=== PATIENT | male | born 1945 | race Caucasian/White ===

== ENCOUNTER 2021-10-23 11:43 | Inpatient (IN) ==
--- NOTE | 2021-10-23 12:39 | Emergency Department Note ---
History of Present Illness General Chief complaint: Leg Injury/Pain Stated complaint: RIGHT CALF PAIN Time Seen by Provider: 10/23/21 12:12 Source: patient and family Mode of arrival: ambulatory Limitations: no limitations History of Present Illness Provider complaint: Right leg swelling/pain, hypoxia Onset (ago): week(s) 1 Maximum Pain Intensity: 6 Treatments prior to arrival: none This is a 76-year-old male presents emergency department with concern for right lower extremity pain and swelling as well as recently noted hypoxia. 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 Patient often has edema to his legs after being on his feet however he states the right leg continued to become more edematous and became more painful with it. No recent trauma or change in activity. Patient also noticed increased fatigue over the last 10 days. Denies overt shortness of breath or coughing. at bedside states he can barely walk several steps due to the pain in the right lower extremity. He denies chest pain, fevers or chills. Patient states because he historically has been very well conditioned and would run marathons his resting heart rate is typically in the 60s, respiratory rate around 10. He states due to his increased fatigue over the weekend he checked with a home pulse oximeter and was routinely finding sats in the mid to upper 80s. Patient does have a prior history of lung cancer. He underwent resection at [facility] 5 years ago. He states 1 year ago a recurrence was found with metastatic disease. He is currently taking 2 immunologic chemotherapeutic agents. Pt seen during a time of high acuity and national emergency pandemic while wea ring PPE. Home Medications Medication Instructions Recorded Confirmed Type glucosamine sulfate 500 mg tablet 1,500 mg PO BID 09/26/18 10/23/21 History (Glucosamine) capmatinib 200 mg tablet (Tabrecta) 200 mg PO BID 10/23/21 10/23/21 History osimertinib 80 mg tablet (Tagrisso) 80 mg PO DAILY 10/23/21 10/23/21 History Allergies Allergy/AdvReac Type Severity Reaction Status Date / Time bee venom protein (honey bee) Allergy Severe Anaphylaxis Verified 10/13/18 10:44 dutasteride [From Avodart] Allergy Intermediate Hives Verified 10/13/18 10:44 [facility] Allergy Severe Anaphylaxis Uncoded 09/26/18 13:27 Past Med/Surg History Medical History (Updated 10/25/21 @ 00:39 by Roslyn Tanner DO) Acute DVT (deep venous thrombosis) GERD (gastroesophageal reflux disease) Lung cancer SURGERY Metastasis to brain Osteoarthritis Prostate cancer RADIATION AND SEEDS Pulmonary embolism and infarction Scoliosis Surgical History History of appendectomy History of arthroscopy RT/LEFT KNEE History of cardiac cath 1988 AT [facility] (NO STENTS) History of colonoscopy History of herniorrhaphy RT/LEFT INGUINAL HERNIA X 2 History of lobectomy of lung L UPPER LOBECTOMY LEFT WEDGE RESECTION History of tonsillectomy History of tooth extraction Macular pucker LEFT EYE (LASER) Family History (Updated 10/23/21 @ 16:16 by Suzanne Campos MD) Other Family history non-contributory Social History (Updated 10/23/21 @ 16:17 by Suzanne Campos MD) Smoking Status: Never smoker Second Hand Exposure: No; Hx Alcohol Use: Yes Alcohol type: beer Hx Substance Use: No Preferred Language: Persian Communication Ability: Effective Optical Instrument Assembler Required: No Beliefs That Will Affect Care: None marital status: Current Living Situation: Spouse current occupational status: employed 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 [employer] Other Information That Helps Us Care for You: No Feels Safe at Home: Yes Safety Concerns: Feels Safe At This Time Assistive Devices: Glasses Review of Systems A total of 10 systems reviewed and were otherwise negative All systems reviewed & are unremarkable except as noted in HPI & below Physical Exam Vital Signs Vital Signs - 24 hr 10/23/21 11:55 Temperature 36.0 C L Temperature Source Temporal Artery Scan Pulse Rate 78 Respiratory Rate 20 Respiratory Effort / Characteristics Non-Labored Respiratory Depth Normal Blood Pressure 116/77 Blood Pressure Mean 90 Pulse Oximetry 94 Oxygen Delivery Method Room Air Sepsis Recent Fever Within 48 Hours No Sepsis New/Unexplained Change in Mental Status N/A Sepsis Action Taken by Nursing No Action Required GENERAL: alert, well appearing, well nourished, no distress, non-toxic EYE EXAM: normal conjunctiva, PERRL and EOM's grossly intact OROPHARYNX: no exudate, no erythema, lips, buccal mucosa, and tongue normal and mucous membranes are moist NECK: supple, no nuchal rigidity, no adenopathy, non-tender LUNGS: Clear to auscultation. Normal chest wall mechanics, no w/r/r HEART: no murmurs, S1 normal and S2 normal ABDOMEN: abdomen soft, non-tender, normo-active bowel sounds, no masses, no rebound or guarding. BACK: Back is symmetrical on inspection and there is no deformity, no midline tenderness, no CVA tenderness. SKIN: no rashes and no bruising UPPER EXTREMITIES: upper extremities are grossly normal. FROM, nml pulses b/l. LOWER EXTREMITIES: No pitting edema. FROM, nml pulses b/l. NEURO EXAM: Normal sensorium, cranial nerves II-XII grossly intact, normal speec h, no gross weakness of arms, no gross weakness of legs. Gross sensation intact. Course Administered Medications Cephalexin HCl (Cephalexin 250 Mg Cap) 250 mg PO QID [facility]; Protocol Stop: 10/30/21 17:49 Last Admin: 10/24/21 20:58 Dose: 250 mg Documented by: [id number] Admin: 10/24/21 16:37 Dose: 250 mg Documented by: [id number] Admin: 10/24/21 13:15 Dose: 250 mg Documented by: [id number] Admin: 10/24/21 08:12 Dose: 250 mg Documented by: [id number] Admin: 10/23/21 23:30 Dose: 250 mg Documented by: [id number] Admin: 10/23/21 19:40 Dose: 250 mg Documented by: [id number] Doxycycline Hyclate (Doxycycline Hyclate 100 Mg Cap) 100 mg PO BID [facility] Stop: 10/30/21 17:49 Last Admin: 10/24/21 20:58 Dose: 100 mg Documented by: [id number] Admin: 10/24/21 08:13 Dose: 100 mg Documented by: [id number] Admin: 10/23/21 19:40 Dose: 100 mg Documented by: [id number] Enoxaparin Sodium (Enoxaparin 80 Mg/0.8 Ml Syr) 80 mg SQ Q12H [facility] Stop: 11/23/21 18:59 Last Admin: 10/24/21 19:51 Dose: 80 mg Documented by: [id number] Capmatinib (Tabrecta ) 200 Mg Tab - Non- Formulary Patient's Own Med 2 ea PO BIDM [facility] Stop: 11/22/21 19:59 Last Admin: 10/24/21 16:37 Dose: 2 ea Documented by: [id number] Admin: 10/24/21 08:13 Dose: 2 ea Documented by: [id number] Admin: 10/23/21 19:49 Dose: 200 mg Documented by: [id number] Osimertinib (Osimertinib Mesylate - Pt Own Med) 1 ea PO HS [facility] Stop: 11/22/21 20:59 Last Admin: 10/24/21 16:38 Dose: 1 ea Documented by: [id number] Cosigned by: [id number] Admin: 10/23/21 21:24 Dose: 1 ea Documented by: [id number] Cosigned by: [id number] Discontinued Medications Heparin Sodium (Porcine) (Heparin Sod (Porcine) 1000 Unit/Ml) 6,000 units IV NOW ONE Stop: 10/23/21 14:54 Last Admin: 10/23/21 15:12 Dose: 6,000 units Documented by: [id number] Cosigned by: [id number] Sodium Chloride (Nss 1000ml) 1,000 mls @ 125 mls/hr IV .Q8H [facility] Stop: 11/22/21 12:44 Last Infusion: 10/23/21 17:50 Dose: 0 mls/hr Documented by: [id number] Admin: 10/23/21 14:06 Dose: 125 mls/hr Documented by: [id number] Heparin Sodium/Dextrose (Heparin Sodium/Dextrose) 25,000 units in 500 mls @ 23 mls/hr IV .[id number] [facility]; Protocol Stop: 11/22/21 14:59 Last Titration: 10/24/21 18:22 Dose: 0 units/hr, 0 mls/hr Documented by: [id number] Cosigned by: [id number] Admin: 10/24/21 10:16 Dose: 1,150 units/hr, 23 mls/hr Documented by: [id number] Cosigned by: [id number] Titration: 10/24/21 10:16 Dose: 1,150 units/hr, 23 mls/hr Documented by: [id number] Cosigned by: [id number] Titration: 10/24/21 08:20 Dose: 1,150 units/hr, 23 mls/hr Documented by: [id number] Cosigned by: [id number] Titration: 10/24/21 06:59 Dose: 1,150 units/hr, 23 mls/hr Documented by: [id number] Cosigned by: [id number] Titration: 10/24/21 00:23 Dose: 1,150 units/hr, 23 mls/hr Documented by: [id number] Cosigned by: [id number] Admin: 10/23/21 15:13 Dose: 1,400 units/hr, 28 mls/hr Documented by: [id number] Cosigned by: [id number] Ioversol (Optiray 320 125ml) 120 ml IV ONCE ONE Stop: 10/23/21 13:51 Last Admin: 10/23/21 13:51 Dose: 120 ml Documented by: [id number] Lidocaine/Epinephrine (Lidocaine 2%/Epinephrine 1:100,000 20ml) 20 ml INFIL ONE ONE Stop: 10/23/21 15:47 Last Admin: 10/23/21 15:59 Dose: 20 ml Documented by: [id number] Miscellaneous (Heparin - Stop Order) 1 ea N/A ONE ONE Stop: 10/24/21 18:31 Last Admin: 10/24/21 18:22 Dose: 1 ea Documented by: [id number] Critical Care Time Critical Care Time: Yes Total Critical Care Time: 42 Critical care of 42 min performed to assess and manage high likelihood of life- threatening PE's, involving labs and imaging performed with assessment to evaluate hypoxia and PE diagnosis with frequent reassessment. This time includes bedside time, treatment discussions with patient/family/consultants, documentation time and excludes procedure time. Medical Decision Making Differential Diagnosis DVT, musculoskeletal, infection, joint effusion, trauma, lymphedema, idiopathic, CHF, as well as other pathologies. Medical Records Attestation: I reviewed the patient's medical records. Home Medications Current Medication List: was personally reviewed by me Laboratory Data Attestation: I reviewed the patient's lab results. Result diagrams: 10/24/21 06:54 10/24/21 06:54 Lab Results 10/23/21 10/23/21 10/23/21 Range/Units 12:45 12:45 12:45 WBC 8.30 (4.8-10.8) K/uL RBC 4.52 L (4.7-6.1) M/uL Hgb 14.1 (14.0-18.0) g/dL Hct 41.8 L (42-52) % MCV 92.5 (80-100) fL MCH 31.2 (25-34) pg MCHC 33.7 (32-36) g/dL RDW Std Deviation 47.0 H (36.4-46.3) fL RDW Coeff of Azael 13.8 (11.5-14.5) % Plt Count 187 (130-400) K/uL MPV 9.7 (7.4-10.4) fL Immature Gran % (Auto) 0.1 % Neut % (Auto) 67.9 % Lymph % (Auto) 15.8 % [place] % (Auto) 10.6 % Eos % (Auto) 5.2 % Baso % (Auto) 0.4 % Neut # (Auto) 5.64 (1.4-6.5) K/uL Lymph # (Auto) 1.31 (1.2-3.4) K/uL [place] # (Auto) 0.88 H (0.11-0.59) K/uL Eos # (Auto) 0.43 (0-0.5) K/uL Baso # (Auto) 0.03 (0-0.2) K/uL Immature Gran # (Auto) 0.01 (0.00-0.02) K/uL PT 11.9 (9.0-12.0) Seconds INR 1.1 (0.9-1.1) Sodium 138 (136-145) mmol/L Potassium 4.1 (3.5-5.1) mmol/L Chloride 106 (98-107) mmol/L Carbon Dioxide 27 (21-32) mmol/L Anion Gap 5 (3-11) BUN 15 (6-23) mg/dl Creatinine 1.34 (0.6-1.4) mg/dl Est Cr Clr Drug Dosing 48.4 ml/min Est GFR ( Amer) 59.2 ml/min Est GFR (Non-Af Amer) 51.1 ml/min BUN/Creatinine Ratio 11.2 (10-20) Glucose 104 H (70-99(Fasting)) mg/dl Calcium 8.2 L (8.5-10.1) mg/dl Magnesium 1.9 (1.7-2.4) mg/dl Total Bilirubin 1.0 (0.2-1.0) mg/dl AST 17 (13-39) U/L ALT 17 (7-52) U/L Alkaline Phosphatase 76 (34-104) U/L Troponin I High Sens 206.2 H* (0-20) pg/ml B-Natriuretic Peptide (0-100) pg/ml Total Protein 5.7 L (6.0-8.3) gm/dl Albumin 3.2 L (3.4-5.0) gm/dl Globulin 2.5 (2.5-4.0) gm/dl Albumin/Globulin Ratio 1.3 (0.9-2) Lyme Disease IgG Ab (Negative) Lyme Disease IgM Ab (Negative) SARS-CoV-2, RNA, NAAT (NEGATIVE) 10/23/21 10/23/21 10/23/21 Range/Units 12:45 15:15 15:30 WBC (4.8-10.8) K/uL RBC (4.7-6.1) M/uL Hgb (14.0-18.0) g/dL Hct (42-52) % MCV (80-100) fL MCH (25-34) pg MCHC (32-36) g/dL RDW Std Deviation (36.4-46.3) fL RDW Coeff of Azael (11.5-14.5) % Plt Count (130-400) K/uL MPV (7.4-10.4) fL Immature Gran % (Auto) % Neut % (Auto) % Lymph % (Auto) % [place] % (Auto) % Eos % (Auto) % Baso % (Auto) % Neut # (Auto) (1.4-6.5) K/uL Lymph # (Auto) (1.2-3.4) K/uL [place] # (Auto) (0.11-0.59) K/uL Eos # (Auto) (0-0.5) K/uL Baso # (Auto) (0-0.2) K/uL Immature Gran # (Auto) (0.00-0.02) K/uL PT (9.0-12.0) Seconds INR (0.9-1.1) Sodium (136-145) mmol/L Potassium (3.5-5.1) mmol/L Chloride (98-107) mmol/L Carbon Dioxide (21-32) mmol/L Anion Gap (3-11) BUN (6-23) mg/dl Creatinine (0.6-1.4) mg/dl Est Cr Clr Drug Dosing ml/min Est GFR ( Amer) ml/min Est GFR (Non-Af Amer) ml/min BUN/Creatinine Ratio (10-20) Glucose (70-99(Fasting)) mg/dl Calcium (8.5-10.1) mg/dl Magnesium (1.7-2.4) mg/dl Total Bilirubin (0.2-1.0) mg/dl AST (13-39) U/L ALT (7-52) U/L Alkaline Phosphatase (34-104) U/L Troponin I High Sens (0-20) pg/ml B-Natriuretic Peptide 100 (0-100) pg/ml Total Protein (6.0-8.3) gm/dl Albumin (3.4-5.0) gm/dl Globulin (2.5-4.0) gm/dl Albumin/Globulin Ratio (0.9-2) Lyme Disease IgG Ab Negative (Negative) Lyme Disease IgM Ab Negative (Negative) SARS-CoV-2, RNA, NAAT NEGATIVE (NEGATIVE) Imaging Data Radiologist's Impression: Chest CTA 10/23/21 12:31 CHEST CTA for PULMONARY ARTERIES CT DOSE: 367.62 mGy.cm HISTORY: Fatigue. Weakness. Right calf swelling. TECHNIQUE: Multiaxial CT images of the chest were performed following the intravenous administration of contrast to evaluate the pulmonary arteries. Maximal intensity projection images were also obtained. A dose lowering technique was utilized adhering to the principles of ALARA. COMPARISON STUDY: None. FINDINGS: Normal caliber thoracic aorta with no evidence for dissection. Extensive bilateral pulmonary emboli, right greater than left. This involves the majority the right lobar, segmental, and subsegmental pulmonary arteries. Multiple pulmonary emboli also seen within the left lobar and segmental pulm onary arteries. The main pulmonary artery is mildly dilated at 3.4 cm. There is enlargement of the right ventricle suggestive of mild right-sided heart strain. The heart is mildly enlarged. No pleural or pericardial effusions. No fractures within the visualized osseous structures. A 1.4 cm hypodense lesion within the central liver. This favors a small cyst. There is a partially visualized hypodense lesion within the left kidney which is indeterminate but also favors a cyst. Normal esophagus. Low-density soft tissue thickening at the AP window which is ill-defined. This could represent trace fluid or scarring. There are suture material within the left lower lobe consistent with prior wedge re section. Patchy groundglass densities within the periphery of the right lung favors a small pulmonary infarcts. Linear density within the left upper lobe favor scarring or subsegmental atelectasis. Mild focal thickening along the suture material within the left upper lobe on image 220 which measures 1.7 cm. This may also represent scarring. However, 6 month follow-up recommended to ensure stability given the lack of prior studies for comparison. Small patchy groundglass density within the base of the left lower lobe also favors a developing pulmonary infarct. IMPRESSION: 1. Extensive bilateral pulmonary emboli with evidence for mild right-sided heart strain. 2. Scattered patchy peripheral airspace opacities, right greater than left. These likely represent pulmonary infarcts. 3. Postoperative changes within the left lung. There is focal thickening along the left upper lobe suture material as described above. This favors scarring. However, [address] follow-up recommended to ensure stability given the la ck of prior studies. 4. Ill-defined low density at the AP window may represent fluid or scarring. This also bears watching on future examinations. ACT 112: Positive. There are findings on this exam that require communication between the performing entity and the patient following Patient Test Result Information Act ([place] Act 112) guidelines. Electronically signed by: Virgil Bowden M.D. 10/23/2021 2:07 PM Venous Doppler Study 10/23/21 12:32 RIGHT LOWER EXTREMITY VENOUS DOPPLER HISTORY: edema, pain, cancer hx COMPARISON STUDY: None. FINDINGS: Thrombus identified within the distal right superficial femoral vein, popliteal vein, calf vessels. The right common femoral vein remains patent. IMPRESSION: Right lower extremity DVT as described above. ACT 112: Negative or not required by law. Electronically signed by: Virgil Bowden M.D. 10/23/2021 2:08 PM ECG Data Attestation: I personally reviewed and interpreted this ECG as follows: Indication: + SOB/dyspnea Rate (beats per minute): 80 Rhythm: + normal sinus ECG Intervals/blocks: + Normal QRS and + Normal QT ECG [place]: + Normal ECG ST segments: + Nonspecific ST abnormalities MDM Narrative An order was placed for continuous cardiac monitoring. The monitor shows a rate of _83_ with _normal sinus___ rhythm. This is a 76-year-old male presents emerged department with concern for right lower extremity pain and swelling as well as recent fatigue and hypoxia noted at home. Patient does have a history of lung cancer and is concerned for DVT and PE. While patient showed a normal sinus rhythm in the 80s here, patient states this is elevated for him as he is usually in the 60s as he is active and a runner. Patient was afebrile. Labs are drawn and sent, patient found to have an elevated troponin. Right lower extremity ultrasound positive for extensive DVT, and CTA of the chest positive for multiple bilateral PE with evidence of right heart strain. Patient was hemodynamically stable and not hypoxic while in the emergency room. He was started on heparin bolus and drip and case discussed with the hospitalist. Patient was made aware of all results, verbalized understanding and was in agreement with plan. Impression & Plan Dyspnea, Elevated troponin, Lung cancer, Acute pain of right lower extremity, Pulmonary emboli, DVT (deep venous thrombosis) Discharge Plan Visit Data Chief Complaint: Leg Injury/Pain Stated Complaint: RIGHT CALF PAIN ED Provider: Roslyn Tanner Discharge Problem: Dyspnea, Elevated troponin, Lung cancer, Acute pain of right lower extremity, Pulmonary emboli, DVT (deep venous thrombosis) Patient Disposition: Admitted As Inpatient Discharge Instructions Interventions: ED Discharge Assessment Last Done: 10/23/21 17:14 Discharge Problem: Dyspnea Qualifiers: Dyspnea type: shortness of breath Qualified Code(s): R06.02 - Shortness of breath Lung cancer Qualifiers: Laterality: unspecified laterality Lung location: unspecified part of lung Qualified Code(s): C34.90 - Malignant neoplasm of unspecified part of unspecified bronchus or lung Pulmonary emboli Qualifiers: Pulmonary embolism type: multiple subsegmental (without acute cor pulmonale) Qualified Code(s): I26.94 - Multiple subsegmental pulmonary emboli without acute cor pulmonale DVT (deep venous thrombosis) Qualifiers: DVT location: lower extremity Affected thrombotic vein of extremity: unspeci fied vein of extremity Chronicity: acute Laterality: right Qualified Code(s): I82.401 - Acute embolism and thrombosis of unspecified deep veins of right lower extremity
[2021-10-23] MEDS ORDERED: SODIUM CHLORIDE 0.9% 1000ML 1,000 ML IV SCH (12:45)
[2021-10-23 13:06] LABS: INR 1.1 (0.9-1.1); Prothrombin Time 11.9 Seconds (9.0-12.0)
[2021-10-23 13:21] LABS: Albumin Globulin Ratio 1.3 (0.9-2); Albumin Level 3.2 gm/dl (3.4-5.0); BUN Creatinine Ratio 11.2 (10-20); Calcium 8.2 mg/dl (8.5-10.1); Creatinine Clr Calc Pharmacy 48.4 ml/min; Est GFR (African American) 59.2 ml/min; Est GFR (Non-African American) 51.1 ml/min; Globulin 2.5 gm/dl (2.5-4.0); Magnesium 1.9 mg/dl (1.7-2.4); Potassium 4.1 mmol/L (3.5-5.1); Total Protein 5.7 gm/dl (6.0-8.3)
[2021-10-23 13:25] LABS: Basophils # (auto) 0.03 K/uL (0-0.2); Basophils % (auto) 0.4 %; Eosinophils # (auto) 0.43 K/uL (0-0.5); Eosinophils % (auto) 5.2 %; Hematocrit (blood only) 41.8 % (42-52); Hemoglobin 14.1 g/dL (14.0-18.0); Immature Granulocytes # (auto) 0.01 K/uL (0.00-0.02); Immature Granulocytes % (auto) 0.1 %; Lymphocytes # (auto) 1.31 K/uL (1.2-3.4); Lymphocytes % (auto) 15.8 %; Mean Corpuscular Hemoglobin 31.2 pg (25-34); Mean Corpuscular Hgb Conc 33.7 g/dL (32-36); Mean Corpuscular Volume 92.5 fL (80-100); Mean Platelet Volume 9.7 fL (7.4-10.4); Monocytes # (auto) 0.88 K/uL (0.11-0.59); Monocytes % (auto) 10.6 %; Neutrophils # (auto) 5.64 K/uL (1.4-6.5); Neutrophils % (auto) 67.9 %; Platelet Count 187 K/uL (130-400); RDW Coefficient of Variation 13.8 % (11.5-14.5); Red Blood Count 4.52 M/uL (4.7-6.1)
[2021-10-23 13:28] LABS: Troponin I High Sensitivity 206.2 pg/ml (0-20)
[2021-10-23] MEDS ORDERED: OPTIRAY 320 125ml IV ONE (13:50)
--- NOTE | 2021-10-23 14:09 | CT Scan Report ---
CHEST CTA for PULMONARY ARTERIES CT DOSE: 367.62 mGy.cm HISTORY: Fatigue. Weakness. Right calf swelling. TECHNIQUE: Multiaxial CT images of the chest were performed following the intravenous administration of contrast to evaluate the pulmonary arteries. Maximal intensity projection images were also obtaine d. A dose lowering technique was utilized adhering to the principles of ALARA. COMPARISON STUDY: None. FINDINGS: Normal caliber thoracic aorta with no evidence for dissection. Extensive bilateral pulmonar y emboli, right greater than left. This involves the majority the right lobar, segmental, and subsegm ental pulmonary arteries. Multiple pulmonary emboli also seen within the left lobar and segmental pul monary arteries. The main pulmonary artery is mildly dilated at 3.4 cm. There is enlargement of the r ight ventricle suggestive of mild right-sided heart strain. The heart is mildly enlarged. No pleural or pericardial effusions. No fractures within the visualized osseous structures. A 1.4 cm hypodense l esion within the central liver. This favors a small cyst. There is a partially visualized hypodense l esion within the left kidney which is indeterminate but also favors a cyst. Normal esophagus. Low-den sity soft tissue thickening at the AP window which is ill-defined. This could represent trace fluid o r scarring. There are suture material within the left lower lobe consistent with prior wedge resectio n. Patchy groundglass densities within the periphery of the right lung favors a small pulmonary infar cts. Linear density within the left upper lobe favor scarring or subsegmental atelectasis. Mild focal thickening along the suture material within the left upper lobe on image 220 which measures 1.7 cm. This may also represent scarring. However, 6 month follow-up recommended to ensure stability given th e lack of prior studies for comparison. Small patchy groundglass density within the base of the left lower lobe also favors a developing pulmonary infarct. IMPRESSION: 1. Extensive bilateral pulmonary emboli with evidence for mild right-sided heart strain. 2. Scattered patchy peripheral airspace opacities, right greater than left. These likely represent pu lmonary infarcts. 3. Postoperative changes within the left lung. There is focal thickening along the left upper lobe tolliver ture material as described above. This favors scarring. However, [address] follow-up recommend ed to ensure stability given the lack of prior studies. 4. Ill-defined low density at the AP window may represent fluid or scarring. This also bears watching on future examinations. ACT 112: Positive. There are findings on this exam that require communication between the performing entity and the patient following Patient Test Result Information Act ([place] Act 112) guidelines. Electronically signed by: Virgil Bowden M.D. 10/23/2021 2:07 PM
--- NOTE | 2021-10-23 14:09 | Ultrasound Report ---
RIGHT LOWER EXTREMITY VENOUS DOPPLER HISTORY: edema, pain, cancer hx COMPARISON STUDY: None. FINDINGS: Thrombus identified within the distal right superficial femoral vein, popliteal vein, calf vessels. The right common femoral vein remains patent. IMPRESSION: Right lower extremity DVT as described above. ACT 112: Negative or not required by law. Electronically signed by: Virgil Bowden M.D. 10/23/2021 2:08 PM
[2021-10-23] MEDS ORDERED: Heparin IV Adult Wt-Based Standard WITH Bolus Protocol IV SCH (14:40)
[2021-10-23] MEDS ORDERED: HEPARIN SOD (PORCINE) 1000 UNIT/ML IV ONE (14:53)
--- NOTE | 2021-10-23 14:53 | History & Physical Report ---
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 Caleb Juan, tomorrow for decision. Will need lifelong anticoagulation given metastatic incurable cancer -Tylenol or morphine as needed for pain -Incentive spirometry -Supplemental O2 to keep pulse ox greater than 92% -Will need two-step walk test prior to discharge as he was only able to walk several steps before becoming profoundly fatigued which is likely due to hypoxia. (2) Acute DVT (deep venous thrombosis): Plan: Right lower extremity, distal SFV through popliteal and calf veins Elevate leg when possible for edema Tylenol morphine as needed for pain (3) Elevated troponin: Plan: elevated troponin on arrival at 206 Likely secondary to pulmonary emboli Trend serial troponin Checking echocardiogram No chest pain, no ischemic changes on ECG (4) Skin abscess: Plan: Left mid axillary skin abscess noted x3 days prior to admission Patient questions if he was bit by a tick-there is a tiny small black speck on the right side of the lesion but the fluctuance is in the middle -He has a history of Lyme disease but will check Lyme titer -Incision and drainage performed as below -Start Keflex and doxycycline to cover for Streptococcus and potentially MRSA 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 The doxycycline would also cover in case of Lyme disease. -Wound should be dressed daily or as needed for drainage. If the wick falls out, it does not need to be replaced -Follow wound culture Procedure note: I performed bedside incision and drainage of the left axillary abscess-after verbal consent was obtained: A total of 1 mL of 2% lidocaine with epi was injected for anesthesia. A 15 blade scalpel was then used to incise centrally over the area of fluctuance and I expressed approximately 2 mL of thick purulent material. A wound culture was obtained. Loculations were broken up. Gauze was placed into the wound as a wick and it was dressed with folded up 4 x 4 gauze pads and tape. The patient tolerated the procedure well and had very minimal blood loss. (5) Metastasis to brain: Plan: Secondary to known non-small cell lung cancer Has known met to the brain which has shrunk with immunotherapy Continue immunotherapy drugs Follows with oncology at [place] (6) Prostate cancer: Plan: History of radiation, now in remission (7) Osteoarthritis: Plan: History of bilateral TKAs Tylenol as needed for pain Hold home glucosamine (8) Lung cancer: Plan: 2 different primary lung cancers, now status post left upper lobectomy for the first 1 With mets to the brain as above Continue home Tabrecta and Tagrisso (9) GERD (gastroesophageal reflux disease): Plan: No longer takes medications, avoids eating 3 hours before bedtime Plan: DVT prophylaxis-Heparin drip as above for active DVT/PE Disposition-admit to PCU Full code History of Present Illness Chief Complaint: Fatigue, right leg swelling, hypoxia Primary Care Provider: NO PCP This patient is a 76-year-old male with a history of non-small cell lung cancer with mets to the brain as well as a second primary lung cancer on 2 different immunotherapy drugs, prostate cancer status post radiation now in remission, GERD, OA who presents to the ER with likely 10 days or more of right lower extremity swelling and pain, much worse in the swelling the last few days as w ell as profound fatigue with minimal exertion. 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 and also recently traveled by plane to [place] and flew back on October 13. He was measuring his pulse ox at home and did notice that his pulse ox was as low as 83-88% through the weekend but he did not want to come in to be seen. He denies any shortness of breath or chest pain. He has had a dry cough recently but no hemoptysis or sputum production. No fevers or chills. He finally came in today and was found in the ER to have right lower extremity DVT in the distal right SFV, popliteal vein, and calf vessels, as well as extensive bilateral pulmonary emboli and right greater than left patchy peripheral airspace opacities most consistent with pulmonary infarcts. He is status post left upper lobectomy for his lung cancer. In the ER, fortunately his pulse ox was normal at 94 to 95% on room air, he was hemodynamically stable, however he notes typically his heart rate is 60 and it is here in the 80s. He is also noted some tachypnea at 18-20 respirations per minute when typically he has a respiratory rate of 8-10 respirations per minute. He was started on heparin drip in the ER and given 1 L of normal saline. His oncologist from [facility] is to be contacting us with his phone number to be available for any questions. Will need to discuss long-term anticoagulation choices i.e. Lovenox versus Xarelto. Allergies Allergy/AdvReac Type Severity Reaction Status Date / Time bee venom protein (honey bee) Allergy Severe Anaphylaxis Verified 10/13/18 10:44 dutasteride [From Avodart] Allergy Intermediate Hives Verified 10/13/18 10:44 [facility] Allergy Severe Anaphylaxis Uncoded 09/26/18 13:27 Home Medications Medication Instructions Recorded Confirmed Type glucosamine sulfate 500 mg tablet 1,500 mg PO BID 09/26/18 10/23/21 History (Glucosamine) capmatinib 200 mg tablet (Tabrecta) 200 mg PO BID 10/23/21 10/23/21 History osimertinib 80 mg tablet (Tagrisso) 80 mg PO DAILY 10/23/21 10/23/21 History Past Med/Surg History Medical History (Updated 10/23/21 @ 16:23 by Suzanne Campos MD) Acute DVT (deep venous thrombosis) GERD (gastroesophageal reflux disease) Lung cancer SURGERY Metastasis to brain Osteoarthritis Prostate cancer RADIATION AND SEEDS Pulmonary embolism and infarction Scoliosis Surgical History History of appendectomy History of arthroscopy RT/LEFT KNEE History of cardiac cath 1988 AT [place] (NO STENTS) History of colonoscopy History of herniorrhaphy RT/LEFT INGUINAL HERNIA X 2 History of lobectomy of lung L UPPER LOBECTOMY LEFT WEDGE RESECTION History of tonsillectomy History of tooth extraction Macular pucker LEFT EYE (LASER) Family History (Updated 10/23/21 @ 16:16 by Suzanne Campos MD) Other Family history non-contributory Social History (Updated 10/23/21 @ 16:17 by Suzanne Campos MD) Smoking Status: Never smoker Second Hand Exposure: No; Hx Alcohol Use: Yes Alcohol type: beer Hx Substance Use: No Preferred Language: Setswana Communication Ability: Effective Local [employer] Required: No Beliefs That Will Affect Care: None marital status: Current Living Situation: Spouse current occupational status: employed 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 [employer] Feels Safe at Home: Yes Assistive Devices: Glasses Review of Systems Review of Systems: All systems reviewed & are unremarkable except as noted in HPI & below Has noticed a lump develop in the left axillary region over the last 3 days that is very tender to the touch and red No fevers or chills, has a dry cough but no hemoptysis, no shortness of breath, no chest pain, no abdominal pain, no nausea or vomiting or diarrhea, no difficulty with urination Physical Exam Constitutional: WD/WN, vitals as above Eyes: PERRL, conjunctivae normal, anicteric sclerae (Left chronic esotropia) ENMT: external ear and nose normal, oropharynx normal Neck: trachea midline, no thyromegaly Respiratory: normal respiratory effort; no labored breathing and no cough Auscultation: + rhonchi (Right base); no crackles and no wheezes Cardiovascular: Rate/Rhythm: regular rate and regular rhythm Heart Sounds: normal S1 and normal S2; no murmur Vessels: dorsalis pedis pulses present (2+ DP pulses bilaterally) Extremities: + edema (RLE with 2+ pitting edema to the knee and mild erythema) Chest (Breasts): Chest: normal inspection of chest Gastrointestinal (Abdomen): normal bowel sounds, soft, nontender, no hepatosplenomegaly Musculoskeletal: Extremities: extremities normal to inspection; no cyanosis and no clubbing Skin: no rashes, warm and dry + fluctulance (Left mid axillary region with 1.5 cm fluctuant erythematous mass) Neurologic: moves all extremities and awake; no focal motor deficits Psychiatric: A+Ox3, euthymic affect Lymphatic: no lymphedema Results & Data Results & Data ([facility]) Vital Signs (Past 12 Hours) Vital Signs Temp Pulse Resp BP Pulse Ox 10/23/21 11:55 36.0 C L 78 20 116/77 94 Laboratory Results 10/23/21 10/23/21 10/23/21 Range/Units 15:30 15:15 12:45 WBC (4.8-10.8) K/uL RBC (4.7-6.1) M/uL Hgb (14.0-18.0) g/dL Hct (42-52) % MCV (80-100) fL MCH (25-34) pg MCHC (32-36) g/dL RDW Std Deviation (36.4-46.3) fL RDW Coeff of Azael (11.5-14.5) % Plt Count (130-400) K/uL MPV (7.4-10.4) fL Immature Gran % (Auto) % Neut % (Auto) % Lymph % (Auto) % [place] % (Auto) % Eos % (Auto) % Baso % (Auto) % Neut # (Auto) (1.4-6.5) K/uL Lymph # (Auto) (1.2-3.4) K/uL [place] # (Auto) (0.11-0.59) K/uL Eos # (Auto) (0-0.5) K/uL Baso # (Auto) (0-0.2) K/uL Immature Gran # (Auto) (0.00-0.02) K/uL PT 11.9 (9.0-12.0) Seconds INR 1.1 (0.9-1.1) Sodium (136-145) mmol/L Potassium (3.5-5.1) mmol/L Chloride (98-107) mmol/L Carbon Dioxide (21-32) mmol/L Anion Gap (3-11) BUN (6-23) mg/dl Creatinine (0.6-1.4) mg/dl Est Cr Clr Drug Dosing ml/min Est GFR ( Amer) ml/min Est GFR (Non-Af Amer) ml/min BUN/Creatinine Ratio (10-20) Glucose (70-99(Fasting)) mg/dl Calcium (8.5-10.1) mg/dl Magnesium (1.7-2.4) mg/dl Total Bilirubin (0.2-1.0) mg/dl AST (13-39) U/L ALT (7-52) U/L Alkaline Phosphatase (34-104) U/L Troponin I High Sens (0-20) pg/ml B-Natriuretic Peptide 100 (0-100) pg/ml Total Protein (6.0-8.3) gm/dl Albumin (3.4-5.0) gm/dl Globulin (2.5-4.0) gm/dl Albumin/Globulin Ratio (0.9-2) SARS-CoV-2, RNA, NAAT NEGATIVE (NEGATIVE) 10/23/21 10/23/21 Range/Units 12:45 12:45 WBC 8.30 (4.8-10.8) K/uL RBC 4.52 L (4.7-6.1) M/uL Hgb 14.1 (14.0-18.0) g/dL Hct 41.8 L (42-52) % MCV 92.5 (80-100) fL MCH 31.2 (25-34) pg MCHC 33.7 (32-36) g/dL RDW Std Deviation 47.0 H (36.4-46.3) fL RDW Coeff of Azael 13.8 (11.5-14.5) % Plt Count 187 (130-400) K/uL MPV 9.7 (7.4-10.4) fL Immature Gran % (Auto) 0.1 % Neut % (Auto) 67.9 % Lymph % (Auto) 15.8 % [place] % (Auto) 10.6 % Eos % (Auto) 5.2 % Baso % (Auto) 0.4 % Neut # (Auto) 5.64 (1.4-6.5) K/uL Lymph # (Auto) 1.31 (1.2-3.4) K/uL [place] # (Auto) 0.88 H (0.11-0.59) K/uL Eos # (Auto) 0.43 (0-0.5) K/uL Baso # (Auto) 0.03 (0-0.2) K/uL Immature Gran # (Auto) 0.01 (0.00-0.02) K/uL PT (9.0-12.0) Seconds INR (0.9-1.1) Sodium 138 (136-145) mmol/L Potassium 4.1 (3.5-5.1) mmol/L Chloride 106 (98-107) mmol/L Carbon Dioxide 27 (21-32) mmol/L Anion Gap 5 (3-11) BUN 15 (6-23) mg/dl Creatinine 1.34 (0.6-1.4) mg/dl Est Cr Clr Drug Dosing 48.4 ml/min Est GFR ( Amer) 59.2 ml/min Est GFR (Non-Af Amer) 51.1 ml/min BUN/Creatinine Ratio 11.2 (10-20) Glucose 104 H (70-99(Fasting)) mg/dl Calcium 8.2 L (8.5-10.1) mg/dl Magnesium 1.9 (1.7-2.4) mg/dl Total Bilirubin 1.0 (0.2-1.0) mg/dl AST 17 (13-39) U/L ALT 17 (7-52) U/L Alkaline Phosphatase 76 (34-104) U/L Troponin I High Sens 206.2 H* (0-20) pg/ml B-Natriuretic Peptide (0-100) pg/ml Total Protein 5.7 L (6.0-8.3) gm/dl Albumin 3.2 L (3.4-5.0) gm/dl Globulin 2.5 (2.5-4.0) gm/dl Albumin/Globulin Ratio 1.3 (0.9-2) SARS-CoV-2, RNA, NAAT (NEGATIVE) Diagnostic Findings Chest CTA 10/23/21 12:31 CHEST CTA for PULMONARY ARTERIES CT DOSE: 367.62 mGy.cm HISTORY: Fatigue. Weakness. Right calf swelling. TECHNIQUE: Multiaxial CT images of the chest were performed following the intravenous administration of contrast to evaluate the pulmonary arteries. Maximal intensity projection images were also obtained. A dose lowering technique was utilized adhering to the principles of ALARA. COMPARISON STUDY: None. FINDINGS: Normal caliber thoracic aorta with no evidence for dissection. Extensive bilateral pulmonary emboli, right greater than left. This involves the majority the right lobar, segmental, and subsegmental pulmonary arteries. Multiple pulmonary emboli also seen within the left lobar and segmental pulmonary arteries. The main pulmonary artery is mildly dilated at 3.4 cm. There is enlargement of the right ventricle suggestive of mild right-sided heart strain. The heart is mildly enlarged. No pleural or pericardial effusions. No fractures within the visualized osseous structures. A 1.4 cm hypodense lesion within the central liver. This favors a small cyst. There is a partially visualized hypodense lesion within the left kidney which is indeterminate but also favors a cyst. Normal esophagus. Low-density soft tissue thickening at the AP window which is ill-defined. This could represent trace fluid or scarring. There are suture material within the left lower lobe consistent with prior wedge resection. Patchy groundglass densities within the periphery of the right lung favors a small pulmonary infarcts. Linear density within the left upper lobe favor scarring or subsegmental atelectasis. Mild focal thickening along the suture material within the left upper lobe on image 220 which measures 1.7 cm. This may also represent scarring. However, 6 month follow-up recommended to ensure stability given the lack of prior studies for comparison. Small patchy groundglass density within the base of the left lower lobe also favors a developing pulmonary infarct. IMPRESSION: 1. Extensive bilateral pulmonary emboli with evidence for mild right-sided heart strain. 2. Scattered patchy peripheral airspace opacities, right greater than left. These likely represent pulmonary infarcts. 3. Postoperative changes within the left lung. There is focal thickening along the left upper lobe suture material as described above. This favors scarring. However, [address] follow-up recommended to ensure stability given the lack of prior studies. 4. Ill-defined low density at the AP window may represent fluid or scarring. This also bears watching on future examinations. ACT 112: Positive. There are findings on this exam that require communication between the performing entity and the patient following Patient Test Result Information Act ([place] Act 112) guidelines. Electronically signed by: Virgil Bowden M.D. 10/23/2021 2:07 PM Venous Doppler Study 10/23/21 12:32 RIGHT LOWER EXTREMITY VENOUS DOPPLER HISTORY: edema, pain, cancer hx COMPARISON STUDY: None. FINDINGS: Thrombus identified within the distal right superficial femoral vein, popliteal vein, calf vessels. The right common femoral vein remains patent. IMPRESSION: Right lower extremity DVT as described above. ACT 112: Negative or not required by law. Electronically signed by: Virgil Bowden M.D. 10/23/2021 2:08 PM ECG Additional Comments: ECG on 10/23/2021 at 1214 with normal sinus rhythm, rate 80, with pulmonary disease pattern, nonspecific T wave abnormality, no previous to compare to Code Status & VTE Plan Code Status Full code VTE Prophylaxis Plan VTE Prophylaxis will be ordered: Yes PG Care Time/CCT Total # of Minutes Spent Total Time Spent with Patient: Total time spent is greater than 50% in coordination of care (as documented) at patient's floor/unit and/or counseling patient: Coding Level of Care Code 28494 Initial Inpt Care Lvl 3 Diagnoses Metastasis to brain C79.31 Prostate cancer C61 Osteoarthritis M19.90 Lung cancer C34.90 GERD (gastroesophageal reflux disease) K21.9 Acute DVT (deep venous thrombosis) I82.409 Pulmonary embolism and infarction I26.99 Elevated troponin R77.8 Skin abscess L02.91
[2021-10-23] MEDS: HEPARIN SODIUM/DEXTROSE 25,000 UNITS/500 ML BAG IV SCH (15:13)
[2021-10-23] MEDS ORDERED: LIDOCAINE 2%/EPINEPHRINE 1:100,000 20ML INFIL ONE (15:46)
[2021-10-23 17:21] LABS: Lyme Ab IgG w/WB Rflx Negative (Negative); Lyme Ab IgM w/WB Rflx Negative (Negative)
[2021-10-23] MEDS ORDERED: MoRPHine SULFATE 2 MG/ML CARP IV PRN (17:50)
[2021-10-23] MEDS ORDERED: POLYETHYLENE (MIRALAX) 17 GM PACK PO PRN (17:50)
[2021-10-23] MEDS ORDERED: ONDANSETRON INJ 2 MG/ML 2 ML VIAL IV PRN (17:50)
[2021-10-23] MEDS ORDERED: ALUMINUM/MAGNESIUM SUSP 30 ML UDC PO PRN (17:50)
[2021-10-23] MEDS ORDERED: MAGNESIUM HYDROXIDE SUSP 30 ML UDC PO PRN (17:50)
[2021-10-23] MEDS ORDERED: Nursing to Pharmacy Communication SCH (17:50)
[2021-10-23] MEDS ORDERED: ACETAMINOPHEN 325 MG TAB PO PRN (17:50)
[2021-10-23] MEDS: DOXYCYCLINE HYCLATE 100 MG CAP PO SCH (19:40)
[2021-10-23] MEDS: cephALEXin 250 MG CAP PO SCH ×2 (19:40→23:30)
[2021-10-23] MEDS: [UNRECOGNIZED DRUG - OTHER] PO SCH (19:49)
[2021-10-23] MEDS: OSIMERTINIB MESYLATE PO SCH (21:24)
[2021-10-23 21:44] LABS: INR 1.2 (0.9-1.1); Prothrombin Time 12.4 Seconds (9.0-12.0)
[2021-10-23 23:18] LABS: Partial Thromboplastin Time 109.7 Seconds (21.0-31.0)
[2021-10-24 07:17] LABS: Basophils # (auto) 0.03 K/uL (0-0.2); Basophils % (auto) 0.4 %; Eosinophils # (auto) 0.52 K/uL (0-0.5); Eosinophils % (auto) 7.7 %; Hematocrit (blood only) 37.8 % (42-52); Hemoglobin 12.4 g/dL (14.0-18.0); Immature Granulocytes # (auto) 0.01 K/uL (0.00-0.02); Immature Granulocytes % (auto) 0.1 %; Lymphocytes # (auto) 1.67 K/uL (1.2-3.4); Lymphocytes % (auto) 24.7 %; Mean Corpuscular Hemoglobin 30.2 pg (25-34); Mean Corpuscular Hgb Conc 32.8 g/dL (32-36); Mean Corpuscular Volume 92.2 fL (80-100); Mean Platelet Volume 9.9 fL (7.4-10.4); Monocytes # (auto) 0.67 K/uL (0.11-0.59); Monocytes % (auto) 9.9 %; Neutrophils # (auto) 3.86 K/uL (1.4-6.5); Neutrophils % (auto) 57.2 %; Platelet Count 186 K/uL (130-400); RDW Coefficient of Variation 13.6 % (11.5-14.5); RDW Standard Deviation 46.3 fL (36.4-46.3); White Blood Count 6.76 K/uL (4.8-10.8)
[2021-10-24 07:41] LABS: Partial Thromboplastin Ratio 2.3
[2021-10-24 07:47] LABS: BUN Creatinine Ratio 14.2 (10-20); Calcium 7.3 mg/dl (8.5-10.1); Creatinine Clr Calc Pharmacy 48.4 ml/min; Est GFR (African American) 59.2 ml/min; Est GFR (Non-African American) 51.1 ml/min; Magnesium 1.7 mg/dl (1.7-2.4)
[2021-10-24 07:53] LABS: Partial Thromboplastin Time 62.2 Seconds (21.0-31.0)
[2021-10-24] MEDS: cephALEXin 250 MG CAP PO SCH ×4 (08:12→20:58)
[2021-10-24] MEDS: DOXYCYCLINE HYCLATE 100 MG CAP PO SCH ×2 (08:13→20:58)
[2021-10-24] MEDS: [UNRECOGNIZED DRUG - OTHER] PO SCH ×2 (08:13→16:37)
[2021-10-24] MEDS ORDERED: OSIMERTINIB MESYLATE PO SCH (09:00)
[2021-10-24] MEDS: HEPARIN SODIUM/DEXTROSE 25,000 UNITS/500 ML BAG IV SCH (10:16)
--- NOTE | 2021-10-24 16:36 | XCELERA ---
[id number]
[2021-10-24] MEDS: OSIMERTINIB MESYLATE PO SCH (16:38)
[2021-10-24] MEDS ORDERED: ENOXAPARIN 1 MG/KG SQ SCH ×2 (18:00→19:00)
[2021-10-24] MEDS ORDERED: HEPARIN - STOP ORDER ONE (18:30)
[2021-10-24] MEDS: ENOXAPARIN 80 MG/0.8 ML SYR SQ SCH (19:51)
--- NOTE | 2021-10-24 20:49 | Hospitalist Progress Note ---
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 -will discharge on DOAC as per oncologist at [facility]-Dr. Caleb Juan's partner. Will need lifelong anticoagulation given metastatic incurable cancer -Tylenol or morphine as needed for pain -Incentive spirometry -Supplemental O2 to keep pulse ox greater than 92% -Will need two-step walk test prior to discharge as he was only able to walk several steps before becoming profoundly fatigued which is likely due to hypoxia. (2) Acute DVT (deep venous thrombosis): Plan: Right lower extremity, distal SFV through popliteal and calf veins Elevate leg when possible for edema Tylenol morphine as needed for pain (3) Elevated troponin: Plan: elevated troponin on arrival at 206 Likely secondary to pulmonary emboli Trend serial troponin Checking echocardiogram No chest pain, no ischemic changes on ECG (4) Skin abscess: Plan: Left mid axillary skin abscess noted x3 days prior to admission Patient questions if he was bit by a tick-there is a tiny small black speck on the right side of the lesion but the fluctuance is in the middle -He has a history of Lyme disease but will check Lyme titer -Incision and drainage performed as below -Start Keflex and doxycycline to cover for Streptococcus and potentially MRSA 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 The doxycycline would also cover in case of Lyme disease. -Wound should be dressed daily or as needed for drainage. If the wick falls out, it does not need to be replaced -Follow wound culture 10/23: Procedure note: I performed bedside incision and drainage of the left axillary abscess-after verbal consent was obtained: A total of 1 mL of 2% lidocaine with epi was injected for anesthesia. A 15 blade scalpel was then used to incise centrally over the area of fluctuance and I expressed approximately 2 mL of thick purulent material. A wound culture was obtained. Loculations were broken up. Gauze was placed into the wound as a wick and it was dressed with folded up 4 x 4 gauze pads and tape. The patient tolerated the procedure well and had very minimal blood loss. ON 10/24 ordered warm compresses. will defer I and D to General Surgeons. (5) Metastasis to brain: Plan: Secondary to known non-small cell lung cancer Has known met to the brain which has shrunk with immunotherapy Continue immunotherapy drugs Follows with oncology at [place] (6) Prostate cancer: Plan: History of radiation, now in remission (7) Osteoarthritis: Plan: History of bilateral TKAs Tylenol as needed for pain Hold home glucosamine (8) Lung cancer: Plan: 2 different primary lung cancers, now status post left upper lobectomy for the first 1 With mets to the brain as above Continue home Tabrecta and Tagrisso (9) GERD (gastroesophageal reflux disease): Plan: No longer takes medications, avoids eating 3 hours before bedtime Plan: DVT prophylaxis-Heparin drip as above for active DVT/PE Disposition-admit to PCU Full code Admission and Anticipated Discharge Date Admission Date: October 23, 2021 Subjective 76 yo m reports no new symptoms. Review of Systems Review of Systems: All systems reviewed & are unremarkable except as noted in HPI & below Physical Exam Physical Exam: Constitutional: WD/WN, vitals as above Eyes: PERRL, conjunctivae normal, anicteric sclerae (Left chronic esotropia) ENMT: external ear and nose normal, oropharynx normal Neck: trachea midline, no thyromegaly Respiratory: normal respiratory effort; no labored breathing and no cough Au scultation: + rhonchi (Right base); no crackles and no wheezes Cardiovascular: Rate/Rhythm: regular rate and regular rhythm Heart Sounds: normal S1 and normal S2; no murmur Vessels: dorsalis pedis pulses present (2+ DP pulses bilaterally) Extremities: + edema (RLE with 2+ pitting edema to the knee and mild erythema) Chest (Breasts): Chest: normal inspection of chest Gastrointestinal (Abdomen): normal bowel sounds, soft, nontender, no hepatosplenomegaly Musculoskeletal: Extremities: extremities normal to inspection; no cyanosis and no clubbing Skin: no rashes, warm and dry + fluctulance (Left mid axillary region with 1.5 cm fluctuant erythematous mass) Neurologic: moves all extremities and awake; no focal motor deficits Psychiatric: A+Ox3, euthymic affect Lymphatic: no lymphedema Results & Data Results & Data ([facility]) Vital Signs (Past 12 Hours) Vital Signs Temp Pulse Pulse Resp BP BP Pulse Ox 10/24/21 19:00 36.8 C 74 18 115/59 L 91 10/24/21 15:21 36.4 C L 72 18 108/62 95 10/24/21 14:51 77 10/24/21 12:07 36.5 C 84 18 102/57 L 93 PG Care Time/CCT Total # of Minutes Spent Total Time Spent with Patient: Total time spent is greater than 50% in coordination of care (as documented) at patient's floor/unit and/or counseling patient: Coding Level of Care Code 96178 Subseq Hosp Care Lvl 3 Diagnoses Pulmonary embolism and infarction I26.99 Acute DVT (deep venous thrombosis) I82.409 Elevated troponin R77.8 Skin abscess L02.91 Metastasis to brain C79.31 Prostate cancer C61 Osteoarthritis M19.90 Lung cancer C34.90 GERD (gastroesophageal reflux disease) K21.9 Time Spent (min) 40
[2021-10-25 05:37] LABS: Hematocrit (blood only) 37.7 % (42-52); Hemoglobin 12.6 g/dL (14.0-18.0); Mean Corpuscular Hemoglobin 30.1 pg (25-34); Mean Corpuscular Hgb Conc 33.4 g/dL (32-36); Mean Platelet Volume 9.4 fL (7.4-10.4); Platelet Count 180 K/uL (130-400); RDW Coefficient of Variation 13.6 % (11.5-14.5); RDW Standard Deviation 45.4 fL (36.4-46.3); Red Blood Count 4.19 M/uL (4.7-6.1); White Blood Count 6.13 K/uL (4.8-10.8)
[2021-10-25 05:50] LABS: Partial Thromboplastin Ratio 1.2; Partial Thromboplastin Time 33.7 Seconds (21.0-31.0)
[2021-10-25 06:10] LABS: BUN Creatinine Ratio 12.3 (10-20); Calcium 7.2 mg/dl (8.5-10.1); Creatinine Clr Calc Pharmacy 53.2 ml/min; Est GFR (African American) 66.3 ml/min; Est GFR (Non-African American) 57.2 ml/min; Potassium 3.9 mmol/L (3.5-5.1)
--- NOTE | 2021-10-25 07:08 | Electrocardiogram Report ---
Test Reason : Blood Pressure : / mmHG Vent. Rate : 080 BPM Atrial Rate : 080 BPM P-R Int : 144 ms QRS Dur : 106 ms QT Int : 364 ms P-R-T Axes : 084 -17 062 degrees QTc Int : 419 ms Poor data quality, interpretation may be adversely affected Normal sinus rhythm Nonspecific T wave abnormality Abnormal ECG No previous ECGs available Confirmed by Lopez Palma ([id number]) on 10/25/2021 7:08:00 AM Referred By: REFERRED SELF Confirmed By:Lopez Palma
[2021-10-25] MEDS: ENOXAPARIN 80 MG/0.8 ML SYR SQ SCH (08:17)
[2021-10-25] MEDS: cephALEXin 250 MG CAP PO SCH ×3 (08:19→16:01)
[2021-10-25] MEDS: DOXYCYCLINE HYCLATE 100 MG CAP PO SCH (08:19)
[2021-10-25] MEDS: [UNRECOGNIZED DRUG - OTHER] PO SCH (08:19)
--- NOTE | 2021-10-25 11:00 | Surgery Consultation ---
Date of Consultation October 25, 2021 Assessment & Plan (1) Skin abscess: (2) Acute pain of right lower extremity: (3) Pulmonary emboli: (4) Lung cancer: 76 year-old male with history of metastatic lung cancer presented to ED with right lower extremity swelling and fatigue. Found to have Right extensive DVT with bilateral pulmonary emboli and infarcts. He also had skin abscess of the left inferior axillary area which was Incised and drained on 10/23/21, culture showing pinpoint growth at this time. Exam showing purulent drainage and some fluctuance still present with erythema. Tender to palpation. No surrounding cellulitis. Plan: Needs opened and drained further, discussed repeat I&D under local and will place packing gauze. Could be underlying infected cyst which we would not remove at this time. Will obtain another culture if possible see separate procedure note Dr. Lee has seen and examined pt, agrees with above. Supervising Physician Co-Signing Physician Notes I have seen and examined the patient and agree with the above physical exam, assessment and plan. I was present and assisted with the incision and drainage procedure which was dictated in a separate note. Packing was placed and will be changed by the patient's at home. He may be discharged to home. We will follow-up with him in clinic. History of Present Illness Reason for Consultation: Left axilla/back abscess, I&D performed 10/23/21 Requesting Physician: Zia Marroquin Attending Physician: Zia Marroquin History of Present Illness Mr. Alvarado is a 76 year-old male with metastatic lung cancer to brain s/p left lobectomy and now with Acute DVT in right lower extremity and extensive bilateral pulmonary embolism with pulmonary infarcts. He is currently on Lovenox. He was also found to have an abscess of the left inferior axilla in which Incision and drainage was performed on 10/23/21. Culture obtained but only showing pinpoint growth. Currently on PO Keflex and Doxycycline. Possible tick bite 3 days prior to admission. Our services consulted for possible further I&D. Mr. Alvarado states the area is still very sore and seems as though there is more fluid to drain. States it has been present for about 6 days total now. States area looked like a boil at first. Allergies Allergy/AdvReac Type Severity Reaction Status Date / Time bee venom protein (honey bee) Allergy Severe Anaphylaxis Verified 10/13/18 10:44 dutasteride [From Avodart] Allergy Intermediate Hives Verified 10/13/18 10:44 CFC Allergy Severe Anaphylaxis Uncoded 09/26/18 13:27 Home Medications Medication Instructions Recorded Confirmed Type glucosamine sulfate 500 mg tablet 1,500 mg PO BID 09/26/18 10/23/21 History (Glucosamine) capmatinib 200 mg tablet (Tabrecta) 200 mg PO BID 10/23/21 10/23/21 History osimertinib 80 mg tablet (Tagrisso) 80 mg PO DAILY 10/23/21 10/23/21 History apixaban 5 mg tablet (Eliquis) See Rx Instructions .ROUTE 10/25/21 Rx .COMPLEX #60 tab cephalexin 250 mg capsule 250 mg PO QID 7 Days #28 cap 10/25/21 Rx Patient History Medical History (Updated 10/25/21 @ 00:39 by Roslyn Tanner DO) Acute DVT (deep venous thrombosis) GERD (gastroesophageal reflux disease) Lung cancer SURGERY Metastasis to brain Osteoarthritis Prostate cancer RADIATION AND SEEDS Pulmonary embolism and infarction Scoliosis Surgical History History of appendectomy History of arthroscopy RT/LEFT KNEE History of cardiac cath 1988 AT [facility] (NO STENTS) History of colonoscopy History of herniorrhaphy RT/LEFT INGUINAL HERNIA X 2 History of lobectomy of lung L UPPER LOBECTOMY LEFT WEDGE RESECTION History of tonsillectomy History of tooth extraction Macular pucker LEFT EYE (LASER) Family History (Updated 10/23/21 @ 16:16 by Suzanne Campos MD) Other Family history non-contributory Social History (Updated 10/23/21 @ 16:17 by Suzanne Campos MD) Smoking Status: Never smoker Second Hand Exposure: No; Hx Alcohol Use: Yes Alcohol type: beer Hx Substance Use: No Preferred Language: [place] Communication Ability: Effective 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 No alot of induration or fluctuance on exam. Very sensitive and tender to palpation. Psychiatric: A+Ox3, euthymic affect Results & Data ([facility]) Vital Signs (Past 12 Hours) Vital Signs Temp Pulse Pulse Resp BP BP Pulse Ox 10/25/21 08:11 36.6 C 70 14 116/67 98 10/25/21 08:00 66 10/25/21 03:13 36.8 C 75 18 105/47 L 90 10/25/21 00:00 72 10/24/21 23:00 36.8 C 74 18 95/57 L 90 Laboratory Results 10/25/21 10/25/21 10/25/21 Range/Units 05:23 05:23 05:23 WBC 6.13 (4.8-10.8) K/uL RBC 4.19 L (4.7-6.1) M/uL Hgb 12.6 L (14.0-18.0) g/dL Hct 37.7 L (42-52) % MCV 90.0 (80-100) fL MCH 30.1 (25-34) pg MCHC 33.4 (32-36) g/dL RDW Std Deviation 45.4 (36.4-46.3) fL RDW Coeff of Azael 13.6 (11.5-14.5) % Plt Count 180 (130-400) K/uL MPV 9.4 (7.4-10.4) fL APTT 33.7 H (21.0-31.0) Seconds PTT Ratio 1.2 Sodium 136 (136-145) mmol/L Potassium 3.9 (3.5-5.1) mmol/L Chloride 108 H (98-107) mmol/L Carbon Dioxide 23 (21-32) mmol/L Anion Gap 5 (3-11) BUN 15 (6-23) mg/dl Creatinine 1.22 (0.6-1.4) mg/dl Est Cr Clr Drug Dosing 53.2 ml/min Est GFR ( Amer) 66.3 ml/min Est GFR (Non-Af Amer) 57.2 ml/min BUN/Creatinine Ratio 12.3 (10-20) Glucose 104 H (70-99(Fasting)) mg/dl Calcium 7.2 L (8.5-10.1) mg/dl Microbiology 10/23/21 17:05 Gram Stain - Final Axilla,Left Deep Wound Culture - Preliminary Pin-point growth present, reincubating. (1) Lung cancer Laterality: unspecified laterality Lung location: unspecified part of lung Qualified Code(s): C34.90 - Malignant neoplasm of unspecified part of unspecified bronchus or lung (2) Pulmonary emboli Pulmonary embolism type: multiple subsegmental (without acute cor pulmonale) Qualified Code(s): I26.94 - Multiple subsegmental pulmonary emboli without acute cor pulmonale
[2021-10-25] MEDS ORDERED: LIDOCAINE 1%/EPINEPHRINE 1:100,000 50 ML VIAL INFIL ONE (11:45)
--- NOTE | 2021-10-25 13:12 | Procedure Note ---
Procedure Note Date of Service October 25, 2021 Note Patient elected for repeat incision and drainage and informed consent obtained. He was positioned on the hospital bed with left side up. Area was prepped with Betadine swabs. The area was anesthetized using 3 cc of 1% lidocaine with epi nephrine . Once area was anesthetized , a 15 blade scalpel was made to create a single straight incision extending prior I&D incision for total length of about 1.5 cm. There was some expression of pus as well as sebaceous material. Culture swab was obtained. The area was opened using a straight needle haul driver to break up any further loculations and some more sebaceous material expressed. Rest of the local, 2 cc, was used to flush the wound and then about 5 cc of sterile saline until clear return was noted. There was cyst wall still present in the wound . The wound was packed with 1/4" plain packing gauze and a gauze and Optifoam dressing applied. Patient tolerated procedure without difficulty. Dr. Lee was present during the procedure. Patient should change the packing daily for 2 more days. Likely will not need both Keflex and Doxycycline as this looked like infected sebaceous cyst Can follow-up in surgical office as outpatient for formal excision of the cyst Supervising Physician Co-Signing Physician Notes I was present for and participated in the procedure. Coding
[2021-10-25] MEDS ORDERED: APIXABAN 5 MG TABLET PO SCH (20:00)
== END 2021-10-25 16:46 | disposition home or self-care (01) | DRG 176 ==
LOC: ED 11:43 → 2E 15:56 → SUATTDRO 15:56 → 2E 17:14